=== PATIENT | male | born 2000 | race Hispanic/Latino ===

== ENCOUNTER → 2023-10-28 | Outpatient (CLI) | payer OTHER ==
[~2023-10-28] MED LIST: ISOVUE-300 61% 100ML VIAL As Ordered ONE; LIDOCAINE 1% MDV 20ML VIAL As Ordered ONE; PROHANCE 279.3MG/ML 5ML VIAL As Ordered ONE
== END ==
LOC: M RAD 06:28
PROVIDERS: ATTEND Physician Assistant
DX: M25.511 Pain in right shoulder (principal)
CPT/HCPCS: 23350; 73223; 77002; A9576; Q9967

== ENCOUNTER → 2024-03-09 | Outpatient (REF) | LOC: M PLAIMG 10:25 | PROVIDERS: ATTEND Nurse Practitioner Family | DX: M54.2 Cervicalgia (principal); M25.572 Pain in left ankle and joints of left foot; M41.86 Other forms of scoliosis, lumbar region ==